=== PATIENT | male | born 1985 | race Two or more races ===

== ENCOUNTER 2018-04-19 00:31 | Emergency (ER) | payer SELFPAY ==
[~2018-04-19] VITALS: Ht 167.6 cm; Wt 65.8 kg
[2018-04-19 00:23] VITALS: BP 98/50
--- NOTE | 2018-04-19 01:05 | Emergency Room Report ---
History of Present Illness General Chief Complaint: Alcohol Intoxication Source: Patient, EMS Present Illness HPI Is a 32-year-old male brought in by EMS for alcohol intoxication. [place] was found next to a nightclub and bar. Unable to get much history from him because of his severe intoxication. There was no trauma. Allergies: Coded Allergies: No Known Allergies (Unverified , 04/19/18) Patient History Past Medical History: see triage record, old chart reviewed, unable to obtain Past Surgical History: unable to obtain Pertinent Family History: unable to obtain Social History: Reports: alcohol use Immunizations: other Reviewed Nursing Documentation: PMH: Agreed; PSxH: Agreed Nursing Documentation-PMH Past Medical History: No Stated History Review of Systems All Other Systems: limited - secondary to intoxication Physical Exam Vital Signs Date Time Temp Pulse Resp B/P (MAP) Pulse Ox O2 Delivery O2 Flow Rate FiO2 04/19/18 00:18 98.4 68 18 98/50 98 Room Air 98.4 vitals unremarkable Sp02 EP Interpretation: reviewed, normal General Appearance: well appearing, no apparent distress, Stupor - severely intoxicated Head: normocephalic, atraumatic Eyes: bilateral eye PERRL, bilateral eye EOMI ENT: normal pharynx Neck: full range of motion, supple, no meningismus Respiratory: chest non-tender, lungs clear, normal breath sounds Cardiovascular #1: regular rate, rhythm, no murmur Gastrointestinal: normal bowel sounds, non tender, no mass, no organomegaly, no bruit, non-distended Musculoskeletal: back normal, normal range of motion Neurologic: grossly normal Skin: warm/dry Medical Decision Making Diagnostic Impression: Primary Impression: Acute alcoholic intoxication Qualified Codes: F10.929 - Alcohol use, unspecified with intoxication, unspecified ER Course Patient with severe alcohol intoxication. No trauma to warrant CT scan or x- rays. We'll observe until clinical sobriety. Last Vital Signs Date Time Temp Pulse Resp B/P (MAP) Pulse Ox O2 Delivery O2 Flow Rate FiO2 04/19/18 00:23 98.4 68 18 98/50 98 Room Air 98.4 Status: improved Disposition: HOME, SELF-CARE Condition: Stable AARON CASPER M.D. Apr 19, 2018 01:04
[2018-04-19 03:26] VITALS: BP 101/57
[2018-04-19 04:30] VITALS: BP 101/57
== END 2018-04-19 04:30 | disposition home or self-care (01) ==
LOC: EDBD 00:31 → EMR 03:25
DX: F10.929 Alcohol use, unspecified with intoxication, unspecified (principal)
CPT/HCPCS: 99284